=== PATIENT | male | born 1980 | race Caucasian/White ===

== ENCOUNTER 2019-12-15 15:15 | Emergency (ER) | payer OTHER ==
[~2019-12-15] VITALS: Ht 182.9 cm; Wt 86.2 kg
--- NOTE | 2019-12-15 16:00 | NUR ---
BIBS FROM HOME TO ER BED 6. AAOX4. NOT IN RESP DISTRESS. AMBULATORY. CAME IN FOR GEN BODY ACHE AND CHILLS STARTED LAST NIGHT. PT HAD AN AUNT WHO IS COVID POSITIVE AND HAD CONTACT WITH HER. PT IS AFEBRILE HERE AT ER. AWAITING MD FOR EVAL. ORDERS RECEIVED NOTED AND CARRIED OUT.
--- NOTE | 2019-12-15 16:07 | NUR ---
COVID SWAB DONE, URINE COLLECTED AND MAINTENANCE ASSOCIATE AT BEDSIDE FOR BLOOD DRAW.
[2019-12-15 16:14] LABS: LYMPHOCYTES # (AUTO) 0.6 /CMM (0.8-4.8); MEAN CORPUSCULAR VOLUME 91 fL (80-96); MONOCYTES # (AUTO) 0.6 /CMM (0.1-1.30)
[2019-12-15 16:16] LABS: APPEARANCE,URINE Clear (CLEAR); BILIRUBIN,URINE Negative (NEGATIVE); BLOOD, URINE Negative Ery/uL (NEGATIVE); COLOR,URINE Yellow (YELLOW); KETONES,URINE Negative (NEGATIVE); LEUKOCYTE ESTERASE ,URINE Negative (NEGATIVE); NITRITE, URINE Negative (NEGATIVE); PH,URINE 6.5 (5.0-8.0); PROTEIN,URINE Negative (NEGATIVE); UGLUCOSE Negative (NEGATIVE); UROBILINOGEN,URINE 0.2 EU/dL (0.2)
[2019-12-15 16:17] LABS: BASOPHILS % (AUTO) 0.7 % (0.0-2.0); EOSINOPHILS % (AUTO) 1.8 % (0.0-6.0); HEMATOCRIT 40 % (39-51); LYMPHOCYTES % (AUTO) 15.2 % (20.0-44.0); MEAN CORPUSCULAR HGB CONC 33 g/dl (31.0-36.0); MONOCYTES % (AUTO) 15.5 % (2.0-12.0); NEUTROPHILS # (AUTO) 2.6 /CMM (1.8-8.9); NEUTROPHILS % (AUTO) 66.8 % (43.0-81.0); PLATELET COUNT (AUTO) 203 /CMM (150-450); RED BLOOD CELL COUNT(AUTO) 4.33 MIL/uL (4.5-6.0)
[2019-12-15 16:21] LABS: CALCIUM, SERUM 8.6 mg/dL (8.5-10.1); POTASSIUM 3.5 mmol/L (3.5-5.1)
[2019-12-15 16:27] LABS: ALBUMIN 3.9 g/dL (3.4-5.0); BILIRUBIN,TOTAL 0.3 mg/dL (0.2-1.0); TOTAL PROTEIN, SERUM 6.8 g/dL (6.4-8.2)
[2019-12-15 16:47] LABS: C-REACTIVE PROTEIN 1.1 mg/dL (0.0-0.9)
--- NOTE | 2019-12-15 17:15 | NUR ---
Patient discharged to home in stable condition. Written and verbal after care instructions given. Patient verbalizes understanding of instruction. Pt ambulatory with a steady gait
[2019-12-15 17:20] VITALS: BP 128/83
== END 2019-12-15 17:20 | disposition home or self-care (01) ==
LOC: ER 15:19
DX: U07.1 COVID-19 (principal); R50.9 Fever, unspecified; Z87.891 Personal history of nicotine dependence
CPT/HCPCS: 36415; 71045; 80053; 81001; 84145; 85025; 86140; 99284; C9803; U0003; 81000-TC